=== PATIENT | female | born 1985 | race Caucasian/White ===

== ENCOUNTER → 2016-10-09 | Outpatient (CLI) | payer OTHER ==
--- NOTE | 2016-10-09 16:29 | REP ---
CHEST X-RAY, PA AND LATERAL: 10/09/2016. Comparison 12/17/2008. Clinical history: Upper respiratory infection. The two-views show the lungs well inflated. There is no pleural effusion, lateral pleural thickening or apical scarring. There is some coarsening of the perihilar markings and peribronchial thickening that may reflect reactive airway disease or bronchitis. I do not see dense consolidation. No cardiomegaly or vascular redistribution. The aorta is normal. Airway intact. Some degenerative changes are seen in the mid and lower thoracic spine with marginal osteophytes without compression deformity. No free air under the diaphragm. Impression: 1. Perihilar changes suggesting bronchitis or reactive airway disease. No dense consolidation or pleural effusion. Signed by Angel Isabel MD 10/09/2016 04:50 P
== END ==
LOC: M LRY 15:49
PROVIDERS: ATTEND Nurse Practitioner Family
DX: J06.9 Acute upper respiratory infection, unspecified (principal)

== ENCOUNTER → 2016-11-04 | Outpatient (REF) | payer OTHER ==
[2016-11-04 17:01] LABS: MEAN CORPUSCULAR HEMOGLOBIN 30.2 pg (27.0-33.0); MEAN CORPUSCULAR HGB CONC 33.6 g/dl (32.0-36.5); MEAN CORPUSCULAR VOLUME 89.9 fl (80.0-96.0); RED CELL DISTRIBUTION WIDTH 13.5 % (11.5-14.5)
[2016-11-04 17:55] LABS: ALBUMIN 3.5 GM/DL (3.2-5.2); ALBUMIN/GLOBULIN RATIO 1.06 (1.00-1.93); ALKALINE PHOSPHATASE 119 U/L (45-117); ALT/SGPT 30 U/L (12-78); ANION GAP 11 MEQ/L (8-16); AST/SGOT 17 U/L (15-37); BILIRUBIN,TOTAL 0.2 MG/DL (0.2-1.0); BLOOD UREA NITROGEN 10 MG/DL (7-18); CALCIUM LEVEL 8.9 MG/DL (8.5-10.1); CARBON DIOXIDE LEVEL 26 MEQ/L (21-32); CHLORIDE LEVEL 105 MEQ/L (98-107); CHOLESTEROL LEVEL 173 MG/DL (<200); CREATININE FOR GFR 0.63 MG/DL (0.55-1.02); FREE T4 0.88 NG/DL (0.76-1.46); GLOMERULAR FILTRATION RATE > 60.0 (>60); GLUCOSE, FASTING 121 MG/DL (70-105); POTASSIUM SERUM 4.2 MEQ/L (3.5-5.1); SODIUM LEVEL 142 MEQ/L (136-145); TOTAL PROTEIN 6.8 GM/DL (6.4-8.2); TRIGLYCERIDES LEVEL 100 MG/DL (<150)
== END ==
LOC: M SFHCLERA 11:32
PROVIDERS: ATTEND Family Medicine
DX: F33.0 Major depressive disorder, recurrent, mild (principal); E66.01 Morbid (severe) obesity due to excess calories; F17.200 Nicotine dependence, unspecified, uncomplicated

== ENCOUNTER 2017-05-20 08:22 | Day surgery (SDC) | payer OTHER ==
[~2017-05-20] VITALS: Ht 154.9 cm; Wt 143.8 kg
[~2017-05-20 08:22] MED LIST: ALBU17IN PO; DULO1CAP3 PO
[2017-05-20] MEDS ORDERED: LR 1,000 ML IV ONE (08:30)
[2017-05-20] MEDS ORDERED: CLINDAMYCIN 900 MG in APPROPRIATE DILUENT 1 EA IV ONE (09:00)
[2017-05-20] MEDS ORDERED: dexameTHASONE 4 MG/ML 1ML VIAL (J1100) IV ONE (09:00)
[2017-05-20 09:24] LABS: CONTROL LINE UCG INT CTR LINE PRESENT
[2017-05-20] MEDS ORDERED: SUCCINYLCHOLINE 100 MG/5 ML SYRINGE (J0330) As Ordered ONE (09:49)
[2017-05-20] MEDS ORDERED: fentaNYL 100 MCG/2 ML INJECTION (J3010) As Ordered ONE (09:49)
[2017-05-20] MEDS ORDERED: PROPOFOL 200 MG/20 ML VIAL As Ordered ONE (09:49)
[2017-05-20] MEDS ORDERED: ROCURONIUM BROMIDE 50 MG/5 ML VIAL/SYRINGE As Ordered ONE (09:49)
[2017-05-20] MEDS ORDERED: ONDANSETRON 4MG/2ML VIAL (J2405) As Ordered ONE (09:49)
[2017-05-20] MEDS ORDERED: LIDOCAINE 2% INJ 100 MG/5 ML SDV (FOR ANES.) As Ordered ONE (09:49)
[2017-05-20] MEDS ORDERED: MIDAZOLAM INJ 2 MG/2 ML VIAL (J2250) As Ordered ONE (09:50)
[2017-05-20] MEDS ORDERED: LIDOCAINE 2% W/ EPINEPHRINE 1.7 ML DENTAL INJ As Ordered ONE (10:41)
[2017-05-20] MEDS ORDERED: GLYCOPYRROLATE INJ 0.2 MG/ML 2 ML VIAL As Ordered ONE (11:45)
[2017-05-20] MEDS ORDERED: PHENYLEPHRINE INJ 10MG/ML VIAL (J2370) As Ordered ONE (11:45)
[2017-05-20] MEDS ORDERED: PERCOCET 5MG/325MG TAB PO PRN (12:30)
[2017-05-20] MEDS ORDERED: HYDROmorphone HCL 1 MG/ML SYRINGE (J1170) IV PRN (12:30)
[2017-05-20] MEDS ORDERED: ONDANSETRON 4MG/2ML VIAL (J2405) IV PRN (12:30)
[2017-05-20] MEDS ORDERED: LR 1,000 ML IV SCH (12:30)
[2017-05-20] MEDS ORDERED: fentaNYL 100 MCG/2 ML INJECTION (J3010) IV PRN (12:30)
[2017-05-20 13:25] VITALS: BP 123/79
--- NOTE | 2017-05-21 10:31 | RO ---
DATE OF PROCEDURE: 05/20/2017 PREOPERATIVE DIAGNOSES: 1. Severe dental anxiety. 2. Morbid obesity. 3. Partial bony impacted teeth #1 and 32, as well as full bony impacted tooth #17. POSTPROCEDURE DIAGNOSES: Status post the above. PROCEDURE PERFORMED: Surgical extraction of teeth number 1, 17 and 32. SURGEON: Malick Lima DMD FIRE PREVENTION CAPTAIN: None. ANESTHESIA: General endotracheal anesthesia via nasal FISH. SPECIMEN: Teeth for gross only. INDICATIONS FOR SURGERY: [place] is a pleasant 31-year-old female who was referred to my office for extraction of number 1, 17 and 32. She reports the teeth are symptomatic and placing pressure on the back of her jaw. Physical examination revealed the patient is morbidly obese with severe dental anxiety, as well as partial erupted teeth number 1 and 32 with tenderness to palpation and crown caries, as well as impacted tooth number 17 with an inflamed overlying mucosa and also with tenderness to palpation. All the risks, benefits and alternatives were explained to the patient for the proposed treatment plan of the procedure. A discussion was made with the patient regarding performing the procedure in the office with very light IV conscious sedation due to her difficult airway or we can plan to have the procedure done in an operating room setting under general anesthesia. The patient elected to go with the latter option due to her severe dental anxiety. A complete physical examination and a history was performed and is in the patient's chart. A detailed informed consent was discussed with the patient with all the risks, benefits and alternatives and was signed and is in the patient's chart as well. DESCRIPTION OF PROCEDURE: On May 20, 2017, the patient presented to the preop holding area where any last minute questions were addressed. The history and physical and the consent were updated. At that point, the patient was then taken back to the operating room. She was laid supine on the operating room table. Ulnar nerve protectors were placed. Noninvasive cardiac monitors were applied. At that point, the patient underwent general anesthesia and was intubated with a nasal FISH, which was then secured to the patient with a standard head wrap. At this point, the patient was prepped and draped in the usual sterile fashion. A time-out procedure was performed to identify the patient, the procedure and any other precautions. Preoperative antibiotics were given in the IV and at this point a moist throat pack was inserted in the patient's oropharynx followed by the administration of 2% lidocaine with 1:100,000 epinephrine as multiple mandibular blocks and local infiltrations. A #15 blade was then used to make an incision around teeth #1 and 32. The flap was fully reflected, reflecting the facial and distal cortex. Surgairtome was then used to remove buccal and distal bone, exposing more of the crown of the tooth and a straight elevator was then used to luxate the teeth out distally and remove the teeth with the forceps. The sockets were curetted and irrigated. No sinus exposure was noted and no inferior alveolar nerve was noted. Lingual cortex was intact. Socket was then copiously irrigated again and curetted and the flaps were then closed with #3-0 chromic sutures. At this point, attention was then given to tooth site #17 where a full-thickness flap with a hockey stick buccal extension was performed. The flap was fully reflected. Buccal, mesial and distal troughs were made to expose the crown of the tooth. The tooth was noted to be impacted in a distal angular fashion. Therefore, the crown was sectioned and removed and the remaining roots were then sectioned and delivered. The socket was curetted and irrigated. The lingual cortex was intact and the inferior alveolar nerve was not noted. At this point, the socket was once again irrigated and the flap closed with #3-0 chromic sutures. At this point, the oral cavity was irrigated and suctioned. The throat pack was then removed, and the patient was awakened from general anesthesia without any incident and taken back to the PACU. COMPLICATIONS: None at the time of the surgery. ESTIMATED BLOOD LOSS: About 20 mL. DRAINS: There were no drains placed.
== END 2017-05-20 13:39 | disposition home or self-care (01) ==
LOC: M SDC 08:22
PROVIDERS: ATTEND Dentist
DX: K01.1 Impacted teeth (principal); E66.01 Morbid (severe) obesity due to excess calories; F41.9 Anxiety disorder, unspecified; F32.9 Major depressive disorder, single episode, unspecified; F17.210 Nicotine dependence, cigarettes, uncomplicated; Z79.51 Long term (current) use of inhaled steroids; Z79.899 Other long term (current) drug therapy
CPT/HCPCS: 84703; 88300; D7230; D7240; D9223

== ENCOUNTER → 2017-09-16 | Outpatient (REF) | payer OTHER ==
[2017-09-17 01:54] LABS: CHLAMYDIA DNA AMPLIFICATION NEGATIVE (NEGATIVE); GC DNA AMPLIFICATION NEGATIVE (NEGATIVE)
[2017-09-19 08:07] LABS: HPV HYBRID CAPTURE II Negative (Negative)
== END ==
LOC: M LAB REF 18:32
DX: Z11.3 Encounter for screening for infections with a predominantly sexual mode of transmission (principal)

== ENCOUNTER 2017-10-24 08:23 | Day surgery (SDC) | payer OTHER ==
[2017-10-24 09:15] LABS: HEMOGLOBIN 13.1 g/dl (12.0-16.0); MEAN CORPUSCULAR HEMOGLOBIN 29.8 pg (27.0-33.0); MEAN CORPUSCULAR HGB CONC 33.6 g/dl (32.0-36.5); MEAN CORPUSCULAR VOLUME 88.8 fl (80.0-96.0); PLATELET COUNT, AUTOMATED 366 10^3/uL (150-450); RED BLOOD COUNT 4.39 10^6/uL (4.00-5.40); RED CELL DISTRIBUTION WIDTH 13.2 % (11.5-14.5); WHITE BLOOD COUNT 7.8 10^3/uL (4.0-10.0)
[2017-10-24 09:28] LABS: CONTROL LINE HCG INT CTR LINE PRESENT; HCG, SERUM QUALITATIVE NEGATIVE (NEGATIVE)
[2017-10-24] MEDS: LR 1,000 ML IV (09:35)
[2017-10-24] MEDS ORDERED: PROPOFOL 200 MG/20 ML VIAL As Ordered (09:36)
[2017-10-24] MEDS ORDERED: ONDANSETRON 4MG/2ML VIAL (J2405) As Ordered ×2 (09:36→11:17)
[2017-10-24] MEDS ORDERED: fentaNYL 100 MCG/2 ML INJECTION (J3010) As Ordered ×2 (09:36→11:12)
[2017-10-24] MEDS ORDERED: METOCLOPRAMIDE INJ 10MG/2ML VIAL (J2765) As Ordered (09:36)
[2017-10-24] MEDS ORDERED: ROCURONIUM BROMIDE 50 MG/5 ML VIAL As Ordered (09:36)
[2017-10-24] MEDS ORDERED: SUCCINYLCHOLINE 100 MG/5 ML SYRINGE (J0330) As Ordered (09:36)
[2017-10-24] MEDS ORDERED: LIDOCAINE 2% INJ 100 MG/5 ML SDV (FOR ANES.) As Ordered (09:36)
[2017-10-24] MEDS ORDERED: MIDAZOLAM INJ 2 MG/2 ML VIAL (J2250) As Ordered (09:37)
[2017-10-24] MEDS: BUPIVACAINE HCL 0.25% 30 ML VIAL As Ordered (10:36)
[2017-10-24] MEDS ORDERED: PERCOCET 5MG/325MG TAB As Ordered ×2 (11:12)
[2017-10-24] MEDS: fentaNYL 100 MCG/2 ML INJECTION (J3010) IV ×4 (11:15→11:25)
[2017-10-24] MEDS: PERCOCET 5MG/325MG TAB PO (11:30)
[2017-10-24] MEDS ORDERED: LR 1,000 ML IV (11:30)
[2017-10-24] MEDS: ONDANSETRON 4MG/2ML VIAL (J2405) IV (11:49)
[2017-10-24] MEDS ORDERED: KETOROLAC 30 MG/ML VIAL (J1885) IV (17:00)
== END 2017-10-24 13:25 | disposition home or self-care (01) ==
LOC: M SDC 08:23
DX: Z30.2 Encounter for sterilization (principal); K21.9 Gastro-esophageal reflux disease without esophagitis; F32.9 Major depressive disorder, single episode, unspecified; F17.210 Nicotine dependence, cigarettes, uncomplicated; Z79.899 Other long term (current) drug therapy; Z88.0 Allergy status to penicillin
CPT/HCPCS: 58671

== ENCOUNTER → 2018-02-08 | Outpatient (CLI) | payer OTHER, MEDICAID | LOC: M LRY 16:07 | DX: R06.02 Shortness of breath (principal) | CPT/HCPCS: 71046 ==

== ENCOUNTER → 2018-02-08 | Outpatient (REF) | payer OTHER, MEDICAID | LOC: M SFHCLERA 15:53 | DX: J02.9 Acute pharyngitis, unspecified (principal) ==

== ENCOUNTER → 2018-08-12 | Outpatient (REF) | payer OTHER, MEDICAID | LOC: M SFHCLERA 15:28 | DX: R21 Rash and other nonspecific skin eruption (principal); Z53.9 Procedure and treatment not carried out, unspecified reason ==

== ENCOUNTER → 2018-08-19 | Outpatient (REF) | payer OTHER, MEDICAID ==
[2018-08-19 17:17] LABS: BASO % 0.3 % (0.0-1.0); EOS # 0.2 10^3/uL (0.0-0.50); EOS % 2.2 % (0.0-3.0); IMMATURE GRANULOCYTE % 0.2 % (0-3.0); LYMPH # 2.3 10^3/uL (1.5-4.5); LYMPH % 25.9 % (24.0-44.0); MEAN CORPUSCULAR HGB CONC 33.3 g/dl (32.0-36.5); MEAN CORPUSCULAR VOLUME 90.1 fl (80.0-96.0); MONO # 0.6 10^3/uL (0.0-0.8); MONO % 6.6 % (0.0-5.0); NEUTROPHILS # 5.6 10^3/uL (1.8-7.7); NEUTROPHILS % 64.8 % (36.0-66.0); PLATELET COUNT, AUTOMATED 390 10^3/uL (150-450); RED BLOOD COUNT 4.33 10^6/uL (4.00-5.40); RED CELL DISTRIBUTION WIDTH 12.8 % (11.5-14.5); WHITE BLOOD COUNT 8.7 10^3/uL (4.0-10.0)
[2018-08-19 17:40] LABS: ERYTHROCYTE SEDIMENTATION RATE 63 mm/hr (0-20)
[2018-08-19 17:52] LABS: ALBUMIN 3.4 GM/DL (3.2-5.2); ALBUMIN/GLOBULIN RATIO 0.97 (1.00-1.93); ALKALINE PHOSPHATASE 122 U/L (45-117); ALT/SGPT 29 U/L (12-78); ANION GAP 9 MEQ/L (8-16); AST/SGOT 15 U/L (7-37); BILIRUBIN,TOTAL 0.3 MG/DL (0.2-1.0); BLOOD UREA NITROGEN 11 MG/DL (7-18); C REACTIVE PROTEIN QUANTITATIV 2.88 MG/DL (0.00-0.30); CALCIUM LEVEL 9.2 MG/DL (8.5-10.1); CARBON DIOXIDE LEVEL 26 MEQ/L (21-32); CHLORIDE LEVEL 104 MEQ/L (98-107); CREATININE FOR GFR 0.75 MG/DL (0.55-1.30); GLOMERULAR FILTRATION RATE > 60.0 (>60); GLUCOSE, FASTING 100 MG/DL (70-100); POTASSIUM SERUM 4.2 MEQ/L (3.5-5.1); SODIUM LEVEL 139 MEQ/L (136-145); TOTAL PROTEIN 6.9 GM/DL (6.4-8.2)
[2018-08-19 18:53] LABS: COMPLEMENT C3 170 MG/DL (90-180); COMPLEMENT C4 31 MG/DL (10-40)
[2018-08-22 00:08] LABS: ANA (HEP2) Negative (.)
[2018-08-25 10:53] LABS: DRVV SCREEN 46.3 SEC
[2018-08-25 11:56] LABS: PTT LUPUS TYPE ANTICOAG SCREEN 1.1 (0-1.2)
== END ==
LOC: M SFHCLERA 11:51
DX: R21 Rash and other nonspecific skin eruption (principal)
CPT/HCPCS: 84443

== ENCOUNTER → 2018-11-19 | Outpatient (CLI) | payer OTHER, MEDICAID ==
[~2018-11-19] MED LIST changes: +BUPR10TASR PO
[2018-11-19 17:44] LABS: THYROID STIMULATING HORMONE 2.09 uIU/ML (0.358-3.740); THYROXINE (T4) 7.2 UG/DL (4.5-12.0)
[2018-11-19 17:46] LABS: TOTAL T3 128.4 NG/DL (60.0-181.0)
== END ==
LOC: M LRY 14:19
PROVIDERS: ATTEND Ophthalmology
DX: Z13.29 Encounter for screening for other suspected endocrine disorder (principal)

== ENCOUNTER → 2019-01-14 | Outpatient (REF) | payer OTHER, MEDICAID ==
[2019-01-14 16:56] LABS: BASO % 0.3 % (0.0-1.0); EOS # 0.2 10^3/uL (0.0-0.50); EOS % 1.8 % (0.0-3.0); HEMATOCRIT 42.6 % (36.0-47.0); HEMOGLOBIN 13.8 g/dl (12.0-15.5); MEAN CORPUSCULAR HGB CONC 32.4 g/dl (32.0-36.5); MEAN CORPUSCULAR VOLUME 92.6 fl (80.0-96.0); MONO # 0.7 10^3/uL (0.0-0.8); MONO % 7.1 % (0.0-5.0); NEUTROPHILS # 5.9 10^3/uL (1.8-7.7); NEUTROPHILS % 60.6 % (36.0-66.0); PLATELET COUNT, AUTOMATED 404 10^3/uL (150-450); WHITE BLOOD COUNT 9.8 10^3/uL (4.0-10.0)
[2019-01-14 17:28] LABS: ERYTHROCYTE SEDIMENTATION RATE 60 mm/hr (0-20)
== END ==
LOC: M SFHCLERA 13:41
PROVIDERS: ATTEND Family Medicine
DX: H49.02 Third [oculomotor] nerve palsy, left eye (principal)

== ENCOUNTER → 2019-02-08 | Outpatient (REF) | payer OTHER ==
[2019-02-10 00:08] LABS: CYCLIC CITRULLINATED PEPTIDE 5 units (0-19); SSA SJOGRENS A <0.2 AI (0.0-0.9); SSB SJOGRENS B <0.2 AI (0.0-0.9)
== END ==
LOC: M SFHCPLAZ 08:46
PROVIDERS: ATTEND Internal Medicine Rheumatology
DX: M25.50 Pain in unspecified joint (principal); G37.9 Demyelinating disease of central nervous system, unspecified

== ENCOUNTER → 2019-02-19 | Outpatient (CLI) | payer OTHER ==
--- NOTE | 2019-02-19 14:20 | REP ---
MR Brain without and with contrast History: Diplopia Contrast: ProHance. Only 5 ml of contrast were administered. There is no visible contrast material. A single punctate focus of increased signal intensity on T2-weighted images is present in the subcortical white matter of the left frontal lobe. There is no intraparenchymal hemorrhage, infarct, mass or midline shift. A 5 mm pineal cyst is present. The ventricular system is normal in appearance. There is no extra cerebral collection. The visualized sinuses are clear. Impression: There is a single punctate focus of increased signal intensity in the subcortical white matter of the left frontal lobe. This is a nonspecific finding. Electronically Signed by Nestor Fuentes MD 02/19/2019 02:11 P
--- NOTE | 2019-02-19 14:23 | REP ---
MR orbits without and with contrast History: Diplopia Contrast: ProHance. Only 5 ml of contrast were administered. The examination is limited secondary to motion. There is no visible contrast material. The globes , optic nerves and rectus muscles are normal in appearance. There is no orbital lesion. The visualized sinuses are clear. Impression: There is no orbital lesion. Electronically Signed by Nestor Fuentes MD 02/19/2019 02:15 P
== END ==
LOC: M PLARAD 11:11
PROVIDERS: ATTEND Psychiatry & Neurology Neurology
DX: H53.2 Diplopia (principal); H57.12 Ocular pain, left eye; H05.112 Granuloma of left orbit

== ENCOUNTER → 2019-05-23 | Outpatient (CLI) | payer OTHER ==
[~2019-05-23] MED LIST changes: -DULO1CAP3 PO; +DULO1CAP6 PO
--- NOTE | 2019-05-23 13:41 | REP ---
TWO-VIEW CHEST: REASON: Dyspnea. COMPARISON: No priors. FINDINGS: The superior mediastinal structures are midline. The cardiac silhouette is unremarkable in size, shape, and position. The diaphragmatic surfaces of the lungs are regular, and the costophrenic angles are clear. The pulmonary braun are clear. The imaged osseous structures are intact. IMPRESSION: There is no acute cardiopulmonary disease. Electronically Signed by Se Matthews DO 05/23/2019 02:22 P
== END ==
LOC: M LRY 11:50
PROVIDERS: ATTEND Nurse Practitioner Family
DX: R06.2 Wheezing (principal)

== ENCOUNTER → 2019-07-08 | Outpatient (REF) | payer OTHER ==
[2019-07-08 13:01] LABS: TOTAL PROTEIN,RANDOM URINE 26.2 MG/DL (0.0-12.0)
[2019-07-08 14:15] LABS: HEMOGLOBIN A1c 5.7 %
[2019-07-13 00:14] LABS: SSA SJOGRENS A <0.2 AI (0.0-0.9); SSB SJOGRENS B <0.2 AI (0.0-0.9)
== END ==
LOC: M SFHCPLAZ 08:38
PROVIDERS: ATTEND Internal Medicine Rheumatology
DX: G37.9 Demyelinating disease of central nervous system, unspecified (principal); E66.01 Morbid (severe) obesity due to excess calories

== ENCOUNTER → 2019-10-18 | Outpatient (REF) | payer OTHER | LOC: M SFHCLERA 10:51 | PROVIDERS: ATTEND Nurse Practitioner Family | DX: R68.89 Other general symptoms and signs (principal); R30.0 Dysuria ==

== ENCOUNTER → 2022-02-22 | Outpatient (CLI) | payer OTHER | LOC: M RAD 10:54 | PROVIDERS: ATTEND Nurse Practitioner Family | DX: R05.9 Cough, unspecified (principal) ==